=== PATIENT | male | born 2000 | race Caucasian/White ===

== ENCOUNTER 2022-12-01 10:00 | Emergency (ER) | payer OTHER, SELFPAY ==
[2022-12-01 10:11] VITALS: BP 150/70; PULSE 74; RESP 18; TEMP 36.9; O2SAT 96; BMI 21.5
[2022-12-01 11:14] LABS: MANUAL DIFF FLAG NO
[2022-12-01 11:16] LABS: Basophils Percent Auto 0.3 % (0-2); Eosinophils Percent Auto 0.3 % (0-4); Hematocrit 41.7 % (42.0-52.0); Hemoglobin 15.3 g/dl (14.0-18.0); Imm Gran Abs Auto 0.04 X10*3/uL (0.00-0.03); Imm Gran Pct Auto 0.3 % (0.0-0.4); Lymphocytes Absolute Auto 1.3 X10*3/uL (1.2-4.9); Lymphocytes Percent Auto 10.6 % (20-40); Mean Corpuscular HGB Conc 36.7 g/dl (31.0-36.0); Mean Corpuscular Hemoglobin 30.1 pg (27.0-33.0); Mean Corpuscular Volume 82.1 fL (80.0-98.0); Mean Platelet Volume 9.9 fL (9.4-12.4); Monocytes Absolute Auto 0.8 X10*3/uL (0.1-1.2); Monocytes Percent Auto 7.1 % (2-11); Neutrophils Absolute Auto 9.7 x10*3/uL (2.0-8.3); Neutrophils Percent Auto 81.4 % (45-73); Platelet Count 280 X10*3/uL (160-400); Red Blood Count 5.08 X10*6/uL (4.60-5.80); Red Cell Distribution Width 11.9 % (11.0-16.0); White Blood Count 11.9 X10*3/uL (4.8-10.8)
[2022-12-01 11:26] VITALS: BP 126/75; PULSE 87; RESP 18; TEMP 36.9; O2SAT 99
[2022-12-01 11:29] LABS: Alanine Aminotransferase 15 U/L (0-40); Alkaline Phosphatase 59 U/L (39-117); Anion Gap 14 (12-20); Aspartate Amino Transferase 16 U/L (5-37); Bilirubin Total 1.1 mg/dL (0.0-1.0); Blood Urea Nitrogen 10 mg/dL (9-16); Calcium 10.3 mg/dL (8.4-10.2); Carbon Dioxide 20 mmol/L (22-29); Chloride 109 mmol/L (96-108); Creatinine Clr Calc Pharmacy 122.2; Estimated Glomerular Filt Rate > 60; Glucose Random 128 mg/dL (60-115); Lipase 15 U/L (8-78); Potassium 3.6 mmol/L (3.3-5.1); Sodium 139 mmol/L (135-145)
--- NOTE | 2022-12-01 12:58 | ED_ITS ---
HPI - Abdominal Pain General Chief Complaint: Abdominal Pain Stated Complaint: Vomiting Abdominal Pain Time Seen by Provider: 12/01/22 12:26 Source: patient and family (Father, Jose) Mode of arrival: ambulatory Limitations: no limitations History of Present Illness HPI narrative: 22-year-old male who presents emergency department for evaluation of epigastric pain, nausea and vomiting. Patient states that he woke up this morning at 07:00 hours with nausea and vomiting. He states that he has not been able to eat or drink any food or fluid. The patient was seen in urgent care clinic, given ondansetron but vomited immediately after taking the medication therefore is referred to the emergency department for evaluation. The patient had complains of epigastric pain. He states the pain is a constant, burning sensation which is moderate intensity. He denied fever, chills, rhinorrhea, sore throat, cough, shortness of breath, dyspnea on exertion, myalgias arthralgias. Patient states that he also felt ill on Sunday11/29/2022 (2 days prior to evaluation). He that he had epigastric pain and vomiting which will eventually resolved. Patient has no significant past medical history. He states he occasionally drinks alcohol but has had no alcohol to drink in over a week. He does smoke marijuana at least 2 times a day chronically. Related Data Previous Rx's Medication Instructions Recorded omeprazole 20 mg capsule,delayed 20 mg PO DAILY 30 days #30 caps 12/01/22 release ondansetron 4 mg disintegrating 4 mg PO Q6-8H PRN nausea and 12/01/22 tablet vomiting #14 tabs Allergies Allergy/AdvReac Type Severity Reaction Status Date / Time No Known Allergies Allergy Verified 12/01/22 10:14 Review of Systems Review of Systems Yes all other systems are reviewed and are negative [facility] Past Medical History [facility] Narrative: Past medical history: None. Past surgical history: None. Social history: The patient denies tobacco use. He drinks alcohol occasionally. He denies injection drug use but does smoke marijuana 2 times daily Social History Social History Advance Directives: No Advance Directives Information Provided: No Physical Exam ED Vital Signs: Vital Signs - 24 hr 12/01/22 10:11 12/01/22 11:26 12/01/22 14:42 Temperature 98.5 F 98.4 F Pulse Rate 74 87 71 Respiratory Rate 18 18 16 Blood Pressure 150/70 H 126/75 117/70 Pulse Oximetry 96 99 98 Oxygen Delivery Method Room Air Room Air Room Air 12/01/22 15:39 Temperature Pulse Rate 74 Respiratory Rate 17 Blood Pressure 122/64 Pulse Oximetry 98 Oxygen Delivery Method Room Air BMI result Body Mass Index 21.5 Vital signs did reveal an elevated blood pressure of 150/70 Exam: General: Awake, alert in no distress Head: Normocephalic, atraumatic EENT: PERRL, Lids normal, sclera normal, conjunctiva normal, nose normal , ears normal, throat without erythema or exudates Neck: Supple, no adenopathy, trachea midline and nontender Lung: breath sounds symmetric, no wheezing, rales or rhonchi Chest: symmetric movement, nontender Heart: regular rate and rhythm, normal S1, S2 no murmurs or rubs Abdomen: soft, moderate epigastric tenderness, no LLQ or RLQ tenderness, nondistended, normal bowel sounds Back: no vertebral tenderness, no CVAT Extremities: no deformities, moves all extremities symmetrically Skin: no rashes, no lesion, normal color and warmth Neuro: Awake, alert, oriented, normal speech, cranial nerves intact, moves all extremities symmetrically Psych: Pleasant, cooperative Medical Decision Making Medical Decision Making MDM Narrative: 22-year-old male who presents emergency department for evaluation of nausea vomiting which began this morning at 07:00 hours, he has not been able to eat or drink all day. He was seen at an urgent care given oral ondansetron of vomited immediately after getting the medication. Patient also had nausea and vomiting 2 days prior but this resolved. Patient has no significant past medical history, he does smoke marijuana daily. Patient's vital signs did reveal an el evated blood pressure otherwise unremarkable. Exam did reveal epigastric tenderness. I ordered a CBC, CMP, lipase, lactated Ringer's x2 L, Reglan 10 mg IV and Benadryl 50 mg IV. 15:32: Patient's laboratory evaluation was nondiagnostic. Patient felt significantly better after the above treatment. He was able to drink noah and eat crackers. Patient will be treated for possible gastritis with Prilosec 20 mg once a day for 30 days and Zofran ODT 4 mg every 6-8 hours as needed for nausea and vo miting. He was given printed and verbal instructions and discharged home. Differential Diagnosis Differential Diagnoses: The differential diagnosis associated with the presentation includes Differential diagnosis includes was not limited to viral syndrome, gastritis, esophagitis, cannabis hyperemesis syndrome, electrolyte abnormality, appendicitis, pancreatitis, diverticulitis Admission/Observation Consideration of admission/observation: Escalation of care including admission/observation considered Lab Data MDM Lab Attestation statement: I reviewed the patient's lab results. My independent interpretation patient's laboratory evaluation as follows: Elevated WBC 53680. Low bicarb 20, low chloride 109. Elevated glucose 128. LFTs were normal. Lipase normal. 12/01/22 11:01 12/01/22 11:01 Labs: Lab Results 12/01/22 12/01/22 Range/Units 11:01 11:01 WBC 11.9 H (4.8-10.8) X10*3/uL RBC 5.08 (4.60-5.80) X10*6/uL Hgb 15.3 (14.0-18.0) g/dl Hct 41.7 L (42.0-52.0) % MCV 82.1 (80.0-98.0) fL MCH 30.1 (27.0-33.0) pg MCHC 36.7 H (31.0-36.0) g/dl RDW 11.9 (11.0-16.0) % Plt Count 280 (160-400) X10*3/uL MPV 9.9 (9.4-12.4) fL Immature Gran % (Auto) 0.3 (0.0-0.4) % Neut % (Auto) 81.4 H (45-73) % Lymph % (Auto) 10.6 L (20-40) % [place] % (Auto) 7.1 (2-11) % Eos % (Auto) 0.3 (0-4) % Baso % (Auto) 0.3 (0-2) % Lymph # (Auto) 1.3 (1.2-4.9) X10*3/uL [place] # (Auto) 0.8 (0.1-1.2) X10*3/uL Eos # (Auto) 0.0 (0.0-0.4) X10*3/uL Baso # (Auto) 0.0 (0.0-0.2) X10*3/uL Abs Immat Gran (auto) 0.04 H (0.00-0.03) X10*3/uL Absolute Neuts (auto) 9.7 H (2.0-8.3) x10*3/uL Absolute Nucleated RBC 0.000 (0.0-0.012) X10*3/uL Nucleated RBC % (auto) 0.0 (0.0-0.2) /100WBC Sodium 139 (135-145) mmol/L Potassium 3.6 (3.3-5.1) mmol/L Chloride 109 H (96-108) mmol/L Carbon Dioxide 20 L (22-29) mmol/L Anion Gap 14 (12-20) BUN 10 (9-16) mg/dL Creatinine 0.92 (0.5-1.4) mg/dL Estim Creat Clear Calc 122.2 Estimated GFR > 60 Random Glucose 128 H (60-115) mg/dL Calcium 10.3 H (8.4-10.2) mg/dL Total Bilirubin 1.1 H (0.0-1.0) mg/dL AST 16 (5-37) U/L ALT 15 (0-40) U/L Alkaline Phosphatase 59 (39-117) U/L Total Protein 8.0 (6.5-8.0) g/dL Albumin 5.0 (3.5-5.0) g/dL Lipase 15 (8-78) U/L Medications Administered Discontinued Medications Generic Name Dose Route Start Last Admin Trade Name Freq PRN Reason Stop Dose Admin Diphenhydramine HCl 50 mg 12/01/22 12:57 12/01/22 14:09 Diphenhydramine Hcl 50 Mg/Ml Vial IVPUSH 12/01/22 12:58 50 mg ONCE STA Administration Lactated Ringer's 1,000 mls @ 999 mls/hr 12/01/22 13:00 12/01/22 15:21 Lr IV 12/01/22 14:00 Infused .Q1H1M PANTERA Infusion Lactated Ringer's 1,000 mls @ 999 mls/hr 12/01/22 13:00 12/01/22 15:21 Lr IV 12/01/22 14:00 Infused .Q1H1M PANTERA Infusion Ketorolac Tromethamine 15 mg 12/01/22 12:57 12/01/22 14:09 Ketorolac Tromethamine 15 Mg/Ml Vial IVPUSH 12/01/22 12:58 15 mg ONCE STA Administration Metoclopramide HCl 10 mg 12/01/22 12:57 12/01/22 14:09 Metoclopramide Hcl 10 Mg/2 Ml Vial IVPUSH 12/01/22 12:58 10 mg ONCE STA Administration Discharge Plan Discharge Clinical Impression: Acute dehydration Gastritis Qualifiers: Chronicity: acute Gastritis bleeding: without bleeding Nausea & vomiting Qualifiers: Vomiting type: unspecified Qualified Code(s): R11.2 - Nausea with vomiting, unspecified Patient Disposition: Home, Self-Care Instructions: Gastritis (ED) Additional Instructions: Your laboratory evaluation was unremarkable. Your symptoms are most likely caused by inflammation in your stomach or your esophagus (gastritis or esophagitis) Take Prilosec (omeprazole) 20 mg pills, 1 pill once a day for 1 month. This medication shuts off your acid production and lets the inflammation in your stomach and esophagus heal. Complete the full course of this medication. Take Zofran ODT 4 mg pills, 1 pill dissolved in your mouth every 8 hours as needed for nausea and vomiting. Stay on a bland diet(TIA -bananas, rice, applesauce, tea and toast) for the next 24 hours and make sure you drink fluid containing sugar and electrolytes in small amounts , frequent over the next 24 hours. It is also possible that you symptoms can be due to a viral infection, food poisoning or cannabis hyperemesis syndrome (intractable vomiting caused by daily marijuana use). Follow-up with your doctor in 2 days. Please return to the emergency department if your symptoms get worse or if you develop any symptoms that are concerning to you. Prescriptions: New omeprazole 20 mg capsule,delayed release(DR/EC) 20 mg PO DAILY 30 Days Qty: 30 0RF ondansetron 4 mg tablet,disintegrating 4 mg PO Q6-8H PRN (Reason: nausea and vomiting) Qty: 14 0RF
[2022-12-01] MEDS: Ketorolac Tromethamine 15 MG/ML VIAL IVPUSH (14:09)
[2022-12-01] MEDS: Lactated Ringers 1,000 ML 999 ML IV ×2 (14:09→14:10)
[2022-12-01] MEDS: Metoclopramide HCl 10 MG/2 ML VIAL IVPUSH (14:09)
[2022-12-01] MEDS: diphenhydrAMINE HCL 50 MG/ML VIAL IVPUSH (14:09)
[2022-12-01 14:42] VITALS: BP 117/70; PULSE 71; RESP 16; O2SAT 98
[2022-12-01 15:39] VITALS: BP 122/64; PULSE 74; RESP 17; O2SAT 98
== END 2022-12-01 16:07 | disposition home or self-care (01) ==
PROVIDERS: Emergency Provider Emergency Medicine Emergency Medical Services; PCP Internal Medicine
DX: E86.0 Dehydration (principal); K29.70 Gastritis, unspecified, without bleeding; R11.2 Nausea with vomiting, unspecified; Z79.899 Other long term (current) drug therapy
CPT/HCPCS: 36415; 80053; 83690; 85025; 96361; 96374; 96375; 99284; J1200; J1885; J2765